=== PATIENT | female | born 1980 | race Hispanic/Latino ===

== ENCOUNTER → 2021-01-01 | Outpatient (CLI) | payer MEDICAID ==
[~2021-01-01] MED LIST: ACET5ELI PO
== END | disposition home or self-care (01) ==
LOC: OIH 14:32
PROVIDERS: ATTEND Family Medicine
DX: S22.42XA Multiple fractures of ribs, left side, initial encounter for closed fracture (principal); S27.321A Contusion of lung, unilateral, initial encounter; M85.80 Other specified disorders of bone density and structure, unspecified site; X58.XXXA Exposure to other specified factors, initial encounter; Y93.89 Activity, other specified; Y92.89 Other specified places as the place of occurrence of the external cause; Y99.8 Other external cause status
CPT/HCPCS: 71046; 71100

== ENCOUNTER → 2021-01-31 | Outpatient (CLI) | payer MEDICAID | END | disposition home or self-care (01) | LOC: RAH 10:00 | PROVIDERS: ATTEND Family Medicine | DX: K59.00 Constipation, unspecified (principal); I87.8 Other specified disorders of veins | CPT/HCPCS: 74018 ==